=== PATIENT | male | born 1960 | race Caucasian/White ===

== ENCOUNTER 2019-11-09 08:45 | Day surgery (SDC) | payer OTHER ==
[~2019-11-09 08:45] MED LIST: LACTATED RINGERS 1,000 ML IV SCH
[2019-11-09 09:11] VITALS: TEMP 98.3
--- NOTE | 2019-11-09 09:31 | P.GSHP ---
History of Present Illness H&P Date: 11/09/19 Chief Complaint: Screening colonoscopy This a 59-year-old male referred from Dr. sosa. Patient presents today for screening colonoscopy. He denies a significant GI complaints. Past Medical History Past Medical History: Coronary Artery Disease (CAD), Cancer, Hyperlipidemia, Hypertension, Myocardial Infarction ([place]) Additional Past Medical History / Comment(s): LEUKEMIA, NO TX NEEDED AT THIS TIME ([facility]). HEMORROIDS. STRESS TEST-NEGATIVE (2019). Last Myocardial Infarction Date:: MAR 2013 History of Any Multi-Drug Resistant Organisms: None Reported Past Surgical History: Heart Catheterization With Stent Additional Past Surgical History / Comment(s): 2013 STENT X2. I & D OF INFECTED LEFT INDEX FROM CAT BITE. Past Anesthesia/Blood Transfusion Reactions: No Reported Reaction Date of Last Stent Placement:: 2013 Past Psychological History: No Psychological Hx Reported Smoking Status: Former smoker Past Alcohol Use History: Occasional Additional Past Alcohol Use History / Comment(s): QUIT IN 2013. HAD BEEN SMOKING 1-1.5 PPD FOR MANY YEARS. Past Drug Use History: Marijuana Additional Drug Use History / Comment(s): INSTRUCTED TO ABSTAIN 24 HRS PRIOR TO PROCEDURE - Past Family History Brother(s) Family Medical History: Cancer Additional Family Medical History / Comment(s): COLO/RECTAL Medications and Allergies Home Medications Medication Instructions Recorded Confirmed Type Aspirin 81 mg PO HS 10/08/14 11/09/19 History Clopidogrel [Plavix] 75 mg PO QA 10/08/14 11/09/19 History Metoprolol Succinate [Toprol XL] 25 mg PO HS 10/25/14 11/09/19 History Atorvastatin [Lipitor] 40 mg PO HS 11/07/19 11/09/19 History Multivitamins, Thera [Multivitamin 1 tab PO DAILY 11/07/19 11/09/19 History (formulary)] lisinopriL [Zestril] 5 mg PO QAM 11/07/19 11/09/19 History Allergies Allergy/AdvReac Type Severity Reaction Status Date / Time Penicillins Allergy Unknown Verified 11/09/19 09:06 Childhood Sulfa (Sulfonamide Allergy Rash/Hives Verified 11/09/19 09:06 Antibiotics) Surgical - Exam Vital Signs Temp Pulse Resp BP Pulse Ox 98.3 F 78 17 110/62 98 11/09/19 09:08 11/09/19 09:08 11/09/19 09:08 11/09/19 09:08 11/09/19 09:08 - General well developed, well nourished, no distress - Eyes PERRL - ENT normal pinna - Neck no masses - Respiratory normal expansion - Cardiovascular Rhythm: regular - Abdomen Abdomen: soft, non tender Assessment and Plan Assessment: We'll perform screening colonoscopy.
[2019-11-09] MEDS ORDERED: PROPOFOL 10 MG/ML 20 ML VIAL IV ONE (09:36)
--- NOTE | 2019-11-09 09:44 | P.OP ---
Date of Procedure: 11/09/19 Preoperative Diagnosis: Screening colonoscopy Postoperative Diagnosis: External hemorrhoids Diverticulosis Procedure(s) Performed: Colonoscopy Anesthesia: MAC Surgeon: Raymundo Daniels Pathology: none sent Condition: stable Disposition: PACU Description of Procedure: The patient's placed on the endoscopy table in the lateral position. She received IV sedation. Digital rectal exam was performed which revealed external hemorrhoids. The flexible colonoscope was then placed patient anus and passed throughout the entire colon. The ileocecal valve was visualized. Cecum, ascending transverse colon appeared normal. In the descending and sigmoid colon there was extensive diverticular changes. Scope was then brought back the rectum and this appeared normal. Scope was withdrawn through the anus and external and internal hemorrhoids are noted.
[2019-11-09 10:24] VITALS: BP 122/74; PULSE 77; RESP 16
== END 2019-11-09 10:30 | disposition home or self-care (01) ==
LOC: ORWHC2ENDO 08:45
PROVIDERS: ATTEND Surgery
DX: Z12.11 Encounter for screening for malignant neoplasm of colon (principal); K57.30 Diverticulosis of large intestine without perforation or abscess without bleeding; K64.8 Other hemorrhoids; Z80.0 Family history of malignant neoplasm of digestive organs; K64.4 Residual hemorrhoidal skin tags; C95.90 Leukemia, unspecified not having achieved remission; I10 Essential (primary) hypertension; I25.10 Atherosclerotic heart disease of native coronary artery without angina pectoris; I25.2 Old myocardial infarction; E78.5 Hyperlipidemia, unspecified; Z88.0 Allergy status to penicillin; Z88.2 Allergy status to sulfonamides; Z79.82 Long term (current) use of aspirin; Z79.02 Long term (current) use of antithrombotics/antiplatelets; Z79.899 Other long term (current) drug therapy; Z95.5 Presence of coronary angioplasty implant and graft; Z87.891 Personal history of nicotine dependence
CPT/HCPCS: J2704; G0105